=== PATIENT | female | born 1990 | race Caucasian/White ===

== ENCOUNTER 2016-10-30 00:37 | Emergency (ER) | payer MEDICAID, OTHER ==
[~2016-10-30] VITALS: Ht 162.6 cm; Wt 81.7 kg
[2016-10-30 00:43] VITALS: BP 125/76; PULSE 81; RESP 18; TEMP 98.3; O2SAT 98
[2016-10-30] MEDS ORDERED: MIREIUD I-UTERINE (01:04)
[2016-10-30 01:10] LABS: AUTOMATED NEUTROPHIL # 4.9 TH/MM3 (1.8-7.7); BASOPHIL % 0.4 % (0.0-2.0); BLOOD, URINE TRACE (NEG); EOSINOPHIL # 0.2 TH/MM3 (0-0.4); EOSINOPHIL % 2.2 % (0.0-4.0); GLUCOSE,URINE NEG (NEG); HEMATOCRIT 37.9 % (35.0-46.0); HEMO FLAGS DIFF FINAL; KETONE, URINE NEG (NEG); LYMPH % 33.4 % (9.0-44.0); LYMPHOCYTE # 2.9 TH/MM3 (1.0-4.8); MEAN CELL VOLUME 90.5 FL (80.0-100.0); MEAN CORPUSCULAR HEMOGLOBIN 30.3 PG (27.0-34.0); MEAN CORPUSCULAR HGB CONC 33.5 % (32.0-36.0); MONO % 6.6 % (0.0-8.0); NEUT % 57.4 % (16.0-70.0); NITRITE,URINE NEG (NEG); PH, URINE 8.5 (5.0-8.5); PLATELET COUNT 249 TH/MM3 (150-450); RED BLOOD COUNT 4.19 MIL/MM3 (4.00-5.30); RED CELL DISTRIBUTION WIDTH 12.8 % (11.6-17.2); WHITE BLOOD COUNT 8.6 TH/MM3 (4.0-11.0)
[2016-10-30 01:21] LABS: URINE COLOR YELLOW (YELLW/STRAW)
[2016-10-30 01:22] LABS: CHLORIDE 107 MEQ/L (98-107); MUCUS URINE FEW /lpf (OCC); POTASSIUM 3.9 MEQ/L (3.5-5.1); SODIUM (NA) 139 MEQ/L (136-145)
[2016-10-30 01:23] LABS: BACTERIA, URINE MOD /hpf; SQUAMOUS EPITHELIAL CELL URINE > 8 /hpf (0-5)
[2016-10-30 01:25] LABS: COMMENT (UR) CULTURE INDICATED; CULTURE IF INDICATED CULTURE INDICATED
[2016-10-30 01:26] LABS: ANION GAP 7 MEQ/L (5-15); BICARBONATE 25.5 MEQ/L (21.0-32.0); BLOOD UREA NITROGEN 13 MG/DL (7-18)
[2016-10-30 01:29] LABS: ALT (GPT) 34 U/L (10-53); AST (GOT) 26 U/L (15-37); GLOMERULAR FILTRATION RATE 138 ML/MIN (>89)
[2016-10-30 01:31] LABS: TOTAL BILIRUBIN ADULT 0.3 MG/DL (0.2-1.0)
[2016-10-30 01:32] LABS: ALKALINE PHOSPHATASE 56 U/L (45-117)
--- NOTE | 2016-10-30 01:38 | PD ---
HPI Chief Complaint: GI Complaint Time Seen by Provider: 01:21 Travel History International Travel<30 days: Yes Contact w/Intl Traveler<30days: Yes Name of Country Traveled to: [place] Traveled to known affect area: Yes History of Present Illness HPI The patient is a 26-year-old female that complains of bilateral pelvic pain along with some nausea without vomiting since 11 PM tonight. She denies any vaginal discharge. She denies any fever. She did have some slight dysuria today. She states she had a pain like this years ago when she had a ruptured ovarian cyst. [facility] Past Medical History Diminished Hearing: No Medical other: Yes (Ovarian cyst ruptured) Tetanus Vaccination: > 5 Years Influenza Vaccination: Yes ?: Not LMP: UNKNOWN/MIRENA : 3 Para: 2 Miscarriage: 1 Past Surgical History Surgical History: No Previous Surgery Social History Alcohol Use: Yes (occassional) Tobacco Use: No Substance Use: No Allergies-Medications (Allergen,Severity, Reaction): Coded Allergies: No Known Allergies (Unverified , 10/30/16) Reported Meds & Prescriptions Reported Meds & Active Scripts Active Reported Mirena (Levonorgestrel (Iud)) 20 Mcg/24 Hr Iud Unknown Dose I-UTERINE ONCE Review of Systems Except as stated in HPI: all other systems reviewed are Neg Physical Exam Narrative GENERAL: The patient is alert, oriented 3 and slight apparent distress with her bilateral pelvic pain. Her vital signs are normal. SKIN: Focused skin assessment warm/dry. HEAD: Atraumatic. Normocephalic. EYES: Pupils equal and round. No scleral icterus. No injection or drainage. ENT: No nasal bleeding or discharge. Mucous membranes pink and moist. NECK: Trachea midline. No JVD. CARDIOVASCULAR: Regular rate and rhythm. No murmur appreciated. RESPIRATORY: No accessory muscle use. Clear to auscultation. Breath sounds equal bilaterally. GASTROINTESTINAL: Abdomen soft, with tenderness to direct palpation in the midline pelvis, nondistended. Hepatic and splenic margins not palpable. No guarding or rebound is present. MUSCULOSKELETAL: No obvious deformities. No clubbing. No cyanosis. No edema. NEUROLOGICAL: Awake and alert. No obvious cranial nerve deficits. Motor grossly within normal limits. Normal speech. PSYCHIATRIC: Appropriate mood and affect; insight and judgment normal. Data Data Last Documented VS Vital Signs Date Time Temp Pulse Resp B/P Pulse Ox O2 Delivery O2 Flow Rate FiO2 10/30/16 01:58 64 18 112/55 99 Room Air 10/30/16 00:43 98.3 Orders Complete Blood Count With Diff (10/30/16 00:47) Comprehensive Metabolic Panel (10/30/16 00:47) Urinalysis - C+S If Indicated (10/30/16 00:47) Ed Urine Pregnancytest Poc (10/30/16 00:47) Iv Access Insert/Monitor (10/30/16 00:47) Oximetry (10/30/16 00:47) Lipase (10/30/16 00:47) Urine Culture (10/30/16 01:05) Gc And Chlamydia Pcr (10/30/16 01:38) Wet Prep Profile (10/30/16 01:38) Ceftriaxone Inj (Rocephin Inj) (10/30/16 01:45) Ketorolac Inj (Toradol Inj) (10/30/16 01:45) Labs Laboratory Tests Test 10/30/16 10/30/16 01:05 01:40 White Blood Count 8.6 TH/MM3 Red Blood Count 4.19 MIL/MM3 Hemoglobin 12.7 GM/DL Hematocrit 37.9 % Mean Corpuscular Volume 90.5 FL Mean Corpuscular Hemoglobin 30.3 PG Mean Corpuscular Hemoglobin 33.5 % Concent Red Cell Distribution Width 12.8 % Platelet Count 249 TH/MM3 Mean Platelet Volume 8.6 FL Neutrophils (%) (Auto) 57.4 % Lymphocytes (%) (Auto) 33.4 % Monocytes (%) (Auto) 6.6 % Eosinophils (%) (Auto) 2.2 % Basophils (%) (Auto) 0.4 % Neutrophils # (Auto) 4.9 TH/MM3 Lymphocytes # (Auto) 2.9 TH/MM3 Monocytes # (Auto) 0.6 TH/MM3 Eosinophils # (Auto) 0.2 TH/MM3 Basophils # (Auto) 0.0 TH/MM3 CBC Comment DIFF FINAL Differential Comment Urine Color YELLOW Urine Turbidity MOD Urine pH 8.5 Urine Specific [place] 1.024 Urine Protein TRACE mg/dL Urine Glucose (UA) NEG mg/dL Urine Ketones NEG mg/dL Urine Occult Blood TRACE Urine Nitrite NEG Urine Bilirubin NEG Urine Leukocyte Esterase SMALL Urine WBC 3-5 /hpf Urine Squamous Epithelial > 8 /hpf Cells Urine Amorphous Sediment LARGE Urine Bacteria MOD /hpf Urine Mucus FEW /lpf Microscopic Urinalysis Comment CULTURE INDICATED Sodium Level 139 MEQ/L Potassium Level 3.9 MEQ/L Chloride Level 107 MEQ/L Carbon Dioxide Level 25.5 MEQ/L Anion Gap 7 MEQ/L Blood Urea Nitrogen 13 MG/DL Creatinine 0.53 MG/DL Estimat Glomerular Filtration 138 ML/MIN Rate Random Glucose 100 MG/DL Calcium Level 8.8 MG/DL Total Bilirubin 0.3 MG/DL Aspartate Amino Transf 26 U/L (AST/SGOT) Alanine Aminotransferase 34 U/L (ALT/SGPT) Alkaline Phosphatase 56 U/L Total Protein 8.0 GM/DL Albumin 3.7 GM/DL Lipase 127 U/L Clue Cells (Wet Prep) NONE SEEN Vaginal Trichomonas (Wet Prep) NONE SEEN Vaginal Yeast (Wet Prep) NONE SEEN MDM Medical Decision Making Medical Screen Exam Complete: Yes Emergency Medical Condition: Yes Medical Record Reviewed: Yes Interpretation(s) The [id number] urine test is negative. The CBC is normal. The complete metabolic profile is normal. The lipase is normal. The wet prep is negative for Trichomonas, yeast and clue cells. The urine shows moderate turbidity, trace protein, trace occult blood with small leukocyte Estrace and 3- 5 white cells and moderate bacteria and culture is indicated. Differential Diagnosis Ruptured ovarian cyst, tubo-ovarian abscess, PID, pregnancyectopic, intrauterine , appendicitishighly unlikely Narrative Course The test is negative. This may be a ruptured ovarian cyst. The pain was fairly sudden in onset, she states she was fine this evening before this happened. The patient does have a urinary tract infection and will be given Cipro. She will also be given Phenergan for nausea. She is to follow-up with a primary care physician this week. Diagnosis Primary Impression: Cystitis Med/Other Pt SpecificInfo: Prescription(s) given Scripts Ciprofloxacin (Cipro)500 Mg [id number] Mg PO BID 10 Days Ref 0 Prov:Buck Maldonado MD 10/30/16 Disposition: 01 DISCHARGE HOME Condition: Stable Buck Maldonado MD October 30, 2016 01:38
[2016-10-30] MEDS ORDERED: KETOROLAC TROMETHAMINE 60 MG/2 ML (IM) VIAL IVP ONE (01:45)
[2016-10-30] MEDS ORDERED: cefTRIAXone INJ 1,000 MG in SODIUM CHLORIDE 0.9% INJ 100 ML IV ONE (01:45)
[2016-10-30 01:47] VITALS: RESP 18; O2SAT 98
[2016-10-30 01:58] VITALS: BP 112/55; PULSE 64; RESP 18; O2SAT 99
[2016-10-30 02:25] VITALS: RESP 18
[2016-10-30] MEDS ORDERED: CIPR-9 PO (02:27)
[2016-10-30] MEDS ORDERED: PROM25TA5 PO (02:28)
[2016-10-30] MEDS ORDERED: IBUP-232 PO (02:33)
[2016-10-30 06:06] LABS: CHLAMYDIA PCR NOT DETECTED (NOT DETECT); NEISSERIA PCR NOT DETECTED (NOT DETECT)
== END 2016-10-30 03:03 | disposition home or self-care (01) ==
LOC: PHED 00:37
DX: N30.90 Cystitis, unspecified without hematuria (principal); R11.0 Nausea
CPT/HCPCS: 80053; 81001; 83690; 84703; 85025; 87086; 87210; 87491; 87591; 96365; 96375; 99283; J0696; J1885